=== PATIENT | female | born 1950 | race Caucasian/White ===

== ENCOUNTER 2017-06-14 23:32 | Emergency (ER) | payer OTHER ==
[~2017-06-14] VITALS: Ht 162.6 cm; Wt 74.8 kg
[2017-06-14 23:45] VITALS: BP_SYST 147
--- NOTE | 2017-06-14 23:45 | NUR ---
pt ambulatory to bed 6 for evaluation and EKG
--- NOTE | 2017-06-14 23:45 | NUR ---
Pt ambulatory c/o mid chest pain with epigastric pain since 1300 hrs. She reported 1x vomiting and felt better after. She stated her pain started earlier today and has been constant. She denied any recent injury or trauma. She denied any pain on radiation. Pt denied any history of reflux, reported she has been prescribed omeprazole but has not taken on a regular basis. She denied any history of anxiety. She denied any constipation or diarrhea. Pt denied sob, placed on monitor and made comfortable in bed.
--- NOTE | 2017-06-14 23:45 | NUR ---
BETTY Bha at bedside examining patient.
[2017-06-15] MEDS ORDERED: ASPIRIN 325 MG TABLET PO ONE
[2017-06-15] MEDS ORDERED: NITROGLYCERIN 0.4 MG TAB.SUBL SL ONE
[2017-06-15 00:20] LABS: BASOPHILS % (AUTO) 0.5 % (0.0-2.0); EOSINOPHILS # (AUTO) 0.3 K/uL (0.0-0.4); EOSINOPHILS % (AUTO) 4.3 % (0.0-4.0); HEMATOCRIT 38.8 % (36-48); LYMPHOCYTES # (AUTO) 1.8 K/uL (1.0-5.5); LYMPHOCYTES % (AUTO) 23.6 % (20.5-51.5); MEAN CORPUSCULAR HEMOGLOBIN 29 pg (27-31); MEAN CORPUSCULAR HGB CONC 33 % (32-36); MEAN CORPUSCULAR VOLUME 88 fL (79.0-98.0); MONOCYTES # (AUTO) 0.4 K/uL (0.0-1.0); MONOCYTES % (AUTO) 5.9 % (1.7-9.3); NEUTROPHILS % (AUTO) 65.7 % (40.0-70.0); PLATELET COUNT (AUTO) 291 K/uL (130-430); RED BLOOD CELL COUNT(AUTO) 4.44 MIL/uL (4.2-6.2); RED CELL DISTRIBUTION WIDTH 12.6 % (9.0-15.0); WHITE BLOOD COUNT (AUTO) 7.5 K/uL (4.8-10.8)
[2017-06-15 00:34] LABS: CALCIUM 9.2 mg/dL (8.4-11.0); CREATININE 0.75 mg/dL (0.55-1.30); POTASSIUM 3.5 mmol/L (3.5-5.1)
[2017-06-15 00:37] LABS: ALBUMIN 3.9 g/dL (3.4-4.8); TOTAL BILIRUBIN 0.3 mg/dL (0.0-1.0)
[2017-06-15 01:45] VITALS: BP_SYST 142
--- NOTE | 2017-06-15 01:45 | NUR ---
Patient given written and verbal discharge instructions and verbalizes understanding. ER DR EDDIE MONTGOMERY discussed with patient the results and treatment provided. Patient in stable condition. ID arm band removed. Rx of PRILOSEC given. Patient educated on pain management and to follow up with PMD. Pain Scale . Opportunity for questions provided and answered.
== END 2017-06-15 01:45 | disposition home or self-care (01) ==
LOC: SED 23:32
DX: K21.9 Gastro-esophageal reflux disease without esophagitis (principal); R07.89 Other chest pain
CPT/HCPCS: 36415; 71045; 80053; 83690-TC; 83880; 84484; 85025; 93005; 99285